=== PATIENT | male | born 1960 | race Caucasian/White ===

== ENCOUNTER 2021-08-09 11:35 | Inpatient (IN) | payer BC ==
[2021-08-09 12:32] LABS: Urine Blood Negative (Negative); Urine Glucose Negative (Negative); Urine Protein Negative (Negative); Urine Specific Gravity <=1.005 (1.005-1.030)
[2021-08-09 12:48] LABS: Absolute Lymphocytes (CBC) 3.5 K/uL (0.7-4.9); Hematocrit 46.9 % (39.6-49.0); Lymphocytes % 34.9 % (15.3-44.8); MPV 8.5 fL (7.6-11.3); RBC Red Blood Cell Count 5.48 M/uL (4.33-5.43)
[2021-08-09 12:50] LABS: Protime INR 0.96
--- NOTE | 2021-08-09 12:52 | RAD REPORT ---
EXAM DESCRIPTION: CT - Head Brain Wo Cont - 08/09/2021 12:38 pm CLINICAL HISTORY: DIZZINESS Headache, drowsiness COMPARISON: No comparisons TECHNIQUE: All CT scans are performed using dose optimization technique as appropriate and may inclu de automated exposure control or mA/KV adjustment according to patient size. FINDINGS: No intracranial hemorrhage, hydrocephalus or extra-axial fluid collection.No areas of brai n edema or evidence of midline shift. The paranasal sinuses and mastoids are clear. The calvarium is intact. IMPRESSION: No acute intracranial abnormality.
[2021-08-09] MEDS ORDERED: NA CHLORIDE 0.9% 1,000 ML ONE (12:58)
[2021-08-09 13:01] LABS: ALT/SGPT 30 U/L (12-78); AST/SGOT 18 U/L (15-37); Alkaline Phosphatase 80 U/L (45-117); BUN Blood Urea Nitrogen 12 mg/dL (7-18); Bicarbonate 28 mmol/L (21-32); Bilirubin Direct 0.1 mg/dL (0-0.2); Bilirubin Total 0.7 mg/dL (0.2-1.0); Glucose Level 151 mg/dL (74-106); Magnesium 2.2 mg/dL (1.8-2.4); NT PRO-BNP 163 pg/mL (<125); Potassium 3.9 mmol/L (3.5-5.1); Protein, Total 7.4 g/dL (6.4-8.2); Sodium Level 139 mmol/L (136-145); Troponin (Emerg Dept Use Only) < 0.02 ng/mL (0.0-0.045)
--- NOTE | 2021-08-09 13:19 | RAD REPORT ---
EXAM DESCRIPTION: RAD - Chest Single View - 08/09/2021 1:14 pm CLINICAL HISTORY: dizziness COMPARISON: No comparisons FINDINGS: Lines: None. Lungs: No evidence of edema or pneumonia. Pleural: No significant pleural effusions or pneumothorax. Cardiac: The heart size is within normal limits. Bones: No acute fractures. Other: IMPRESSION: No acute cardiopulmonary disease.
--- NOTE | 2021-08-09 14:46 | ER ---
Nurse's Notes [facility] Name: Gt Sun Age: 61 yrs Sex: Male : 1960 Arrival Date: 08/09/2021 Time: 11:37 Bed 14 Private MD: Diagnosis: Transient cerebral ischemic attack, unspecified Presentation: 08/09 11:38 Chief complaint: EMS states: Pt went into work, was confused. Did not recognize names es2 he should have known. Refused [facility], was brought in by [employer]. Walked in. Negative stroke scale. Allergic to PCN. Takes 5 daily meds. did not eat this morning. CBG 100. Coronavirus screen: Vaccine status: Patient reports receiving the 2nd dose of the covid vaccine. Date March 02, 2021. Ebola Screen: Patient negative for fever greater than or equal to 101.5 degrees Fahrenheit, and additional compatible Ebola Virus Disease symptoms Patient denies exposure to infectious person. Patient denies travel to an Ebola-affected area in the 21 days before illness onset. No symptoms or risks identified at this time. Initial Sepsis Screen: Does the patient meet any 2 criteria? No. Patient's initial sepsis screen is negative. Does the patient have a suspected source of infection? No. Patient's initial sepsis screen is negative. Risk Assessment: Do you want to hurt yourself or someone else? Patient reports no desire to harm self or others. Onset of symptoms was August 09, 2021. 11:38 Method Of Arrival: Other es2 11:38 Acuity: GAURANG 2 es2 Triage Assessment: 11:47 General: Appears in no apparent distress. well groomed, well developed, well nourished, es2 Behavior is calm, cooperative, appropriate for age. Pain: Denies pain. EENT: No signs and/or symptoms were reported regarding the EENT system. Neuro: Level of Consciousness is awake, alert, obeys commands, Oriented to person, place, time, situation, Appropriate for age Gait is steady, Speech is normal. Cardiovascular: Capillary refill < 3 seconds Patient's skin is warm and dry. Respiratory: Airway is patent Respiratory effort is even, unlabored, Respiratory pattern is regular, symmetrical. GI: No signs and/or symptoms were reported involving the gastrointestinal system. : No signs and/or symptoms were reported regarding the genitourinary system. Derm: Skin is intact, Skin is dry, Skin is pink, warm \T\ dry. normal, Skin temperature is warm. Derm: Skin is intact, Skin is dry, Skin is pink, warm \T\ dry. normal, Skin temperature is warm. Musculoskeletal: Capillary refill < 3 seconds, Range of motion: intact in all extremities. Historical: - Allergies: 11:43 PENICILLINS; es2 - Home Meds: 11:43 atorvastatin 20 mg oral tab 1 tab once daily [Active]; metformin 500 mg oral tab 1 tab es2 1x day [Active]; escitalopram oxalate 20 mg oral tab 1 tab once daily [Active]; finasteride 5 mg oral tab 1 tab once daily [Active]; aspirin 81 mg Oral tab 81 mg daily [Active]; - Immunization history:: Adult Immunizations up to date, Client reports receiving the 2nd dose of the Covid vaccine. - Social history:: Smoking status: Patient reports the use of cigarette tobacco products, smokes one pack cigarettes per day. - Family history:: not pertinent. Screenin:49 Abuse screen: Denies threats or abuse. Denies injuries from another. Nutritional es2 screening: No deficits noted. Tuberculosis screening: No symptoms or risk factors identified. Fall Risk Gait- Normal/Bed Rest/Wheelchair (0 pts). Assessment: 12:05 Reassessment: Patient and/or family updated on plan of care and expected duration. Pain es2 level reassessed. Patient is alert, oriented x 3, equal unlabored respirations, skin warm/dry/pink. MD at bedside. General: Appears in no apparent distress. comfortable, Behavior is calm, cooperative, appropriate for age. Pain: Denies pain. Neuro: Level of Consciousness is awake, alert, obeys commands, Oriented to person, place, time, situation, Appropriate for age. 21:15 Reassessment: Patient appears in no apparent distress at this time. Pt sitting on side dc2 of bed, is AAOx4, denies pain or discomfort at this time. CBG 115. VSS. Voices no needs at this time. Empty 400ml clear yellow urine. Continue to montior. Vital Signs: 11:38 BP 150 / 92; Pulse 65; Resp 18; Temp 98.7; Pulse Ox 99% on R/A; es2 12:06 BP 153 / 87; Pulse 64; Resp 17; Pulse Ox 99% ; es2 21:15 BP 167 / 98; Pulse 59; Resp 18; Temp 98.0; Pulse Ox 98% ; Pain 0/10; dc2 21:30 BP 153 / 92; Pulse 64; Resp 18; Pain 0/10; dc2 22:30 BP 166 / 85; Pulse 73; Resp 17; Pulse Ox 99% ; Pain 0/10; dc2 Shan Coma Score: 21:15 Eye Response: spontaneous(4). Verbal Response: oriented(5). Motor Response: obeys dc2 commands(6). Total: 15. ED Course: 11:37 Patient arrived in ED. es2 11:38 Nya Anderson, KATELYN is Primary Nurse. es2 11:43 Triage completed. es2 11:49 Patient has correct armband on for positive identification. Bed in low position. Side es2 rails up X 1. 11:49 Patient N/A. es2 11:52 Conor Capellan MD is Attending Physician. ma2 12:25 Basic Metabolic Panel Sent. es2 12:25 CBC with Diff Sent. es2 12:25 LFT's Sent. es2 12:25 Magnesium Sent. es2 12:25 NT PRO-BNP Sent. es2 12:25 PT-INR Sent. es2 12:26 Troponin (emerg Dept Use Only) Sent. es2 12:34 Inserted saline lock: 20 gauge in right forearm, using aseptic technique. es2 12:38 CT Head Brain wo Cont In Process Unspecified. EDMS 13:14 XRAY Chest (1 view) In Process Unspecified. EDMS 14:45 Conor Lott MD is Hospitalizing Provider. ma2 21:20 by ED staff, sent to lab. dc2 22:00 No provider procedures requiring assistance completed. dc2 22:00 IV Changed dressing on Flushed Converted IV to saline lock on dc2 Administered Medications: 12:49 Drug: NS 0.9% 1000 ml Route: IV; Rate: 1 bolus; Site: right forearm; es2 14:14 Follow up: Response: No adverse reaction; IV Status: Completed infusion es2 Intake: 21:15 PO: 500ml; Total: 500ml. dc2 Output: 21:15 Urine: 400ml (Voided); Total: 400ml. dc2 Outcome: 14:45 Decision to Hospitalize by Provider. ma2 22:30 Instructed on the need for admit, safety practices. dc2 22:35 Admitted to Med/surg accompanied by tech, via wheelchair, with chart. dc2 22:41 Condition: improved dc2 22:43 Patient left the ED. dc2 Signatures: Dispatcher [employer] EDMS Conor Capellan MD MD ma2 Anna Armstrong RN RN dc2 Nya Anderson RN RN es2
--- NOTE | 2021-08-09 14:46 | EDPHYS ---
Physician Documentation [facility] Name: Gt Sun Age: 61 yrs Sex: Male : 1960 Arrival Date: 08/09/2021 Time: 11:37 Bed 14 Private MD: ED Physician Conor Capellan HPI: 08/09 12:17 This 61 yrs old Male presents to ER via Other with complaints of episode of memory loss.ma2 12:17 The patient presents with confusion. Onset: The symptoms/episode began/occurred ma2 suddenly, 1 hour(s) ago. The patient presents with feeling faint. Associated signs and symptoms: Pertinent negatives: blurred vision, combativeness, diaphoresis, head injury. Associated signs and symptoms: The patient has no apparent associated signs or symptoms. Severity of symptoms: At their worst the symptoms were mild in the emergency department the symptoms have resolved. Current symptoms: In the emergency department the patient's symptoms have resolved. Patient is a 7-year-old healthy, history of diabetes, had an episode of confusion at home, that has resolved, he has been feeling dizzy over the last 24 hours, no other symptoms no chest pain syncope, no palpitation, no headaches, no focal neurological deficit at this time.. Historical: - Allergies: 11:43 PENICILLINS; es2 - Home Meds: 11:43 atorvastatin 20 mg oral tab 1 tab once daily [Active]; metformin 500 mg oral tab 1 tab es2 1x day [Active]; escitalopram oxalate 20 mg oral tab 1 tab once daily [Active]; finasteride 5 mg oral tab 1 tab once daily [Active]; aspirin 81 mg Oral tab 81 mg daily [Active]; - Immunization history:: Adult Immunizations up to date, Client reports receiving the 2nd dose of the Covid vaccine. - Social history:: Smoking status: Patient reports the use of cigarette tobacco products, smokes one pack cigarettes per day. - Family history:: not pertinent. ROS: 12:17 Constitutional: Negative for fever, chills, and weight loss. ma2 12:17 All other systems are negative. Exam: 12:17 Constitutional: This is a well developed, well nourished patient who is awake, alert, ma2 and in no acute distress. Head/Face: Normocephalic, atraumatic. Eyes: Pupils equal round and reactive to light, extra-ocular motions intact. Lids and lashes normal. Conjunctiva and sclera are non-icteric and not injected. Cornea within normal limits. Periorbital areas with no swelling, redness, or edema. ENT: Nares patent. No nasal discharge, no septal abnormalities noted. Tympanic membranes are normal and external auditory canals are clear. Oropharynx with no redness, swelling, or masses, exudates, or evidence of obstruction, uvula midline. Mucous membranes moist. Neck: Trachea midline, no thyromegaly or masses palpated, and no cervical lymphadenopathy. Supple, full range of motion without nuchal rigidity, or vertebral point tenderness. No Meningismus. Chest/axilla: Normal chest wall appearance and motion. Nontender with no deformity. No lesions are appreciated. Cardiovascular: Regular rate and rhythm with a normal S1 and S2. No gallops, murmurs, or rubs. Normal PMI, no JVD. No pulse deficits. Respiratory: Lungs have equal breath sounds bilaterally, clear to auscultation and percussion. No rales, rhonchi or wheezes noted. No increased work of breathing, no retractions or nasal flaring. Abdomen/GI: Soft, non-tender, with normal bowel sounds. No distension or tympany. No guarding or rebound. No evidence of tenderness throughout. Skin: Warm, dry with normal turgor. Normal color with no rashes, no lesions, and no evidence of cellulitis. MS/ Extremity: Pulses equal, no cyanosis. Neurovascular intact. Full, normal range of motion. Neuro: Awake and alert, GCS 15, oriented to person, place, time, and situation. Cranial nerves II-XII grossly intact. Motor strength 5/5 in all extremities. Sensory grossly intact. Cerebellar exam normal. Normal gait. Vital Signs: 11:38 BP 150 / 92; Pulse 65; Resp 18; Temp 98.7; Pulse Ox 99% on R/A; es2 12:06 BP 153 / 87; Pulse 64; Resp 17; Pulse Ox 99% ; es2 21:15 BP 167 / 98; Pulse 59; Resp 18; Temp 98.0; Pulse Ox 98% ; Pain 0/10; dc2 21:30 BP 153 / 92; Pulse 64; Resp 18; Pain 0/10; dc2 22:30 BP 166 / 85; Pulse 73; Resp 17; Pulse Ox 99% ; Pain 0/10; dc2 Shan Coma Score: 21:15 Eye Response: spontaneous(4). Verbal Response: oriented(5). Motor Response: obeys dc2 commands(6). Total: 15. MDM: 12:17 Differential Diagnosis: electrolyte abnormality, alcohol intoxication, hypoglycemia, ma2 UTI, volume depletion. 13:59 Data reviewed: vital signs, nurses notes. Counseling: I had a detailed discussion with [facility] the patient and/or guardian regarding: the historical points, exam findings, and any diagnostic results supporting the discharge/admit diagnosis, the presence of at least one elevated blood pressure reading (>120/80) during this emergency department visit, the need for further work-up and treatment in the hospital. Response to treatment: the patient's symptoms have markedly improved after treatment. ED course: Patient likely had TIA, although duration was less than few minutes, resolved completely, he does have risk factors such as diabetes, smoker, hypercholesterolemia, and hypertension, he is high risk of having another TIA or stroke in the next 24 hours, and I recommend an admission for TIA work-up. He would like to think about it. . 14:45 Patient medically screened. [facility] 14:45 ED course: discussed with hospitalist Nadine. [facility] 08/09 12:11 Order name: Basic Metabolic Panel; Complete Time: 13:19 [facility] 08/09 12:11 Order name: CBC with Diff; Complete Time: 13:19 [facility] 08/09 12:11 Order name: LFT's; Complete Time: 13:19 [facility] 08/09 12:11 Order name: Magnesium; Complete Time: 13:19 [facility] 08/09 12:11 Order name: NT PRO-BNP; Complete Time: 13:19 [facility] 08/09 12:11 Order name: PT-INR; Complete Time: 13:19 [facility] 08/09 12:11 Order name: Troponin (emerg Dept Use Only); Complete Time: 13:19 [facility] 08/09 12:32 Order name: Urine Dipstick-Ancillary; Complete Time: 13:19 [facility] 08/09 17:17 Order name: Hemoglobin A1c [facility] 08/09 17:24 Order name: Troponin I [facility] 08/09 17:24 Order name: Lipid Profile [facility] 08/09 17:24 Order name: T4 Free [facility] 08/09 17:24 Order name: Thyroid Stimulating Hormone [facility] 08/09 17:40 Order name: Glucose, Ancillary Testing [facility] 08/09 12:11 Order name: XRAY Chest (1 view); Complete Time: 13:20 [facility] 08/09 12:11 Order name: EKG; Complete Time: 12:12 [facility] 08/09 12:11 Order name: Cardiac monitoring; Complete Time: 12:50 [facility] 08/09 12:11 Order name: EKG - Nurse/Tech; Complete Time: 12:50 [facility] 08/09 12:11 Order name: IV Saline Lock; Complete Time: 12:26 [facility] 08/09 12:11 Order name: Labs collected and sent; Complete Time: 12:26 [facility] 08/09 12:11 Order name: O2 Per Protocol [facility] 08/09 12:11 Order name: O2 Sat Monitoring [facility] 08/09 12:11 Order name: CT Head Brain wo Cont; Complete Time: 13:19 [facility] 08/09 12:11 Order name: Urine Dipstick-Ancillary (obtain specimen); Complete Time: 12:34 [facility] 08/09 13:36 Order name: Diet Regular; Complete Time: 13:37 08/09 19:00 Order name: COVID-19 : Document "Date of Symptom Onset" if Symptomatic. bd 08/09 20:27 Order name: CORONAVIRUS [facility] 08/09 21:30 Order name: Glucose, Ancillary Testing [facility] 08/09 21:32 Order name: SARS-COV-2 RT PCR EDNV Administered Medications: 12:49 Drug: NS 0.9% 1000 ml Route: IV; Rate: 1 bolus; Site: right forearm; es2 14:14 Follow up: Response: No adverse reaction; IV Status: Completed infusion es2 Disposition Summary: 08/09/21 14:45 Hospitalization Ordered Hospitalization Status: Observation ma2 Provider: Conor Lott ma2 Location: Telemetry/MedSurg (observation) ma2 Condition: Stable ma2 Problem: new ma2 Symptoms: are unchanged ma2 Bed/Room Type: Standard oh2 Room Assignment: 422(08/09/21 21:52) tl1 Diagnosis - Transient cerebral ischemic attack, unspecified ma2 Forms: - Medication Reconciliation Form ma2 - SBAR form ma2 Signatures: Dispatcher [employer] Kalina Conley RN RN tl1 Conor Capellan MD MD ma2 Nya Anderson RN RN es2 Corrections: (The following items were deleted from the chart) 21:52 14:45 josé miguel tl1
[2021-08-09] MEDS ORDERED: HYDROCODONE/APAP 5/325 MG TAB PO PRN (16:01)
[2021-08-09] MEDS ORDERED: ACETAMINOPHEN 500 MG TAB PO PRN (16:07)
[2021-08-09] MEDS ORDERED: ONDANSETRON 4 MG/2 ML VIAL IV PRN (16:07)
--- NOTE | 2021-08-09 16:13 | P.HP ---
Certification for Inpatient Patient admitted to: Observation With expected LOS: <2 Midnights Practitioner: I am a practitioner with admitting privileges, knowledge of patient current condition, hospital course, and medical plan of care. Services: Services provided to patient in accordance with Admission requirements found in Title 42 Section 412.3 of the Code of Federal Regulations Patient History Date of Service: 08/09/21 Reason for admission: TIA History of Present Illness: Patient is a 61-year-old male with a past medical history significant for HLD, depression, HTN, BPH, DM 2, nicotine dependence who presents with complaint of memory loss, dizziness and confusion which occurred today while he was at work. Patient reported that he has been dizzy since yesterday. Patient denies any other signs or symptoms. Symptoms are aggravated or relieved by nothing. Patient decided to present to the hospital for medical evaluation. Allergies Penicillins Adverse Reaction (Verified 08/09/21 17:33) Hives Home medications list reviewed: Yes Home Medications: Benazepril HCl 40 mg PO DAILY 08/09/21 Metformin HCl 1,000 mg PO BID 08/09/21 Omeprazole 20 mg PO DAILY 08/09/21 Simvastatin 40 mg PO BEDTIME 08/09/21 - Past Medical/Surgical History Past Medical History: Patient denies medical history -: HTN -: Dm 2 -: HTN -: GERD Past Surgical History: Patient denies surgical history - Family History Family History: Reviewed- Non-Contributory - Social History Smoking Status: Current every day smoker Smoking therapy provided: Yes Patient receptive to therapy: Yes Alcohol use: Yes CD- Drugs: No Caffeine use: No Place of Residence: Home Review of Systems Eyes: Unremarkable ENT: Unremarkable Respiratory: As per HPI, Unremarkable Cardiovascular: Unremarkable Gastrointestinal: Unremarkable Genitourinary: Unremarkable Musculoskeletal: Unremarkable Integumentary: Unremarkable Neurological: Other (Memory loss, dizziness, confusion ) Physical Examination - Physical Exam General: Alert, In no apparent distress, Oriented x3 HEENT: Atraumatic, PERRLA, Mucous membr. moist/pink, EOMI, Sclerae nonicteric Neck: Supple, 2+ carotid pulse no bruit, No LAD, Without JVD or thyroid abnormality Respiratory: Clear to auscultation bilaterally, Normal air movement Cardiovascular: Regular rate/rhythm, Normal S1 S2 Capillary refill: <2 Seconds Gastrointestinal: Normal bowel sounds, No tenderness Musculoskeletal: No clubbing, No tenderness Integumentary: No rashes Neurological: Normal gait, Normal speech, Normal strength at 5/5 x4 extr, Normal tone, Normal affect Lymphatics: No axilla or inguinal lymphadenopathy External genitalia: Deferred Rectal: Deferred - Studies Laboratory Data (last 24 hrs) 08/09/21 12:26: PT 11.0, INR 0.96 08/09/21 12:26: WBC 9.90, Hgb 15.7, Hct 46.9, Plt Count 256 08/09/21 12:26: Sodium 139, Potassium 3.9, BUN 12, Creatinine 1.09, Glucose 151 H, Magnesium 2.2, Total Bilirubin 0.7, AST 18, ALT 30, Alkaline Phosphatase 80 Assessment and Plan - Plan --TIA. MRI brain to rule out stroke pending. Continue aspirin. Continue supportive care. --Hypertension. We will allow for permissive hypertension pending resolution of MRI to rule out CVA. --DM2. BS monitoring with sliding scale insulin. --HLD. Continue statin. --Depression. Continue home medication. --Nicotine dependence. Patient counseled on tobacco cessation and placed on nicotine patch. --BPH. Continue finasteride. --DVT prophylaxis with Lovenox subcQ. I have had discussion about advanced directives with the patient during this hospital admission. Addressed code status and /or goals of care. Spent more than 15 minutes. Case discussed withpatient and nurse. The following document was completed using voice recognition software. This can produce yellow pages space salesperson errors that can at times significantly distort words and phrases. Please interpret any aspect of the note that is nonsensical in light of this fact. Discharge Plan: Home Plan to discharge in: 48 Hours - Advance Directives Does patient have a Living Will: No Does patient have a Durable POA for Healthcare: No - Code Status/Comfort Care Code Status Assessed: Yes Code Status: Full Code Physician Review: Patient Assessed, Agree with Above Assessment and Plan Critical Care: No
[2021-08-09] MEDS ORDERED: D50W 25 GM/50 ML SYRINGE IV PRN (16:18)
[2021-08-09] MEDS ORDERED: GLUCAGON 1 MG/VIAL IM PRN (16:18)
[2021-08-09] MEDS ORDERED: INSULIN -REGULAR HUMAN 50 UNIT/0.5 ML ML SQ SCH (16:30)
[2021-08-09] MEDS: INSULIN -REGULAR HUMAN 50 UNIT/0.5 ML ML SQ SCH ×2 (16:30→21:00)
[2021-08-09] MEDS: ENOXAPARIN 40 MG/0.4 ML SQ SCH (17:00)
[2021-08-09 17:24] LABS: HDL Cholesterol 30 mg/dL (40-60); LDL Cholesterol, Calculated 55 (<130); Thyroid Stimulating Hormone 0.936 uIU/mL (0.360-3.740); Troponin I < 0.02 ng/mL (0.0-0.045)
[2021-08-09 17:38] VITALS: BMI 32.4
[2021-08-09] MEDS ORDERED: ENOXAPARIN 40 MG/0.4 ML SQ ONE (17:50)
[2021-08-10 04:30] LABS: Absolute Lymphocytes (CBC) 4.1 K/uL (0.7-4.9); Basophils % 0.9 % (0-1.3); Hematocrit 43.6 % (39.6-49.0); Lymphocytes % 43.8 % (15.3-44.8); MPV 8.9 fL (7.6-11.3); RBC Red Blood Cell Count 5.11 M/uL (4.33-5.43)
[2021-08-10 04:43] LABS: Potassium 4.1 mmol/L (3.5-5.1)
[2021-08-10] MEDS ORDERED: PANTOPRAZOLE 40MG TABLET PO SCH (06:30)
[2021-08-10] MEDS: LORazepam 2 MG/ML VIAL IV ONE ×2 (08:26→08:39)
[2021-08-10] MEDS: INSULIN -REGULAR HUMAN 50 UNIT/0.5 ML ML SQ SCH ×4 (08:40→20:32)
[2021-08-10] MEDS: ENOXAPARIN 40 MG/0.4 ML SQ SCH (08:41)
[2021-08-10] MEDS ORDERED: ASPIRIN 81 MG CHEWABLE TABLET PO SCH (09:00)
[2021-08-10] MEDS ORDERED: BENAZEPRIL 20 MG TAB PO SCH (09:00)
[2021-08-10] MEDS ORDERED: NICOTINE 21 MG/PAT TD SCH (09:00)
[2021-08-10 09:21] VITALS: O2SAT 98
[2021-08-10 16:40] LABS: Urine Appearance CLEAR (Clear); Urine Bilirubin NEGATIVE (Negative); Urine Blood NEGATIVE (Negative); Urine Color YELLOW (Yellow); Urine Glucose NEGATIVE (Negative); Urine Microscopic Reflex NO UMIC; Urine Protein NEGATIVE (Negative); Urine Urobilinogen 0.2 mg/dL (0.2-1.0)
[2021-08-10] MEDS ORDERED: HYDRALAZINE HCL 20 MG/ML VIAL IV PRN (17:31)
[2021-08-10] MEDS ORDERED: LORazepam 2 MG/ML VIAL IV ONE (19:06)
--- NOTE | 2021-08-10 20:27 | RAD REPORT ---
EXAM DESCRIPTION: MRI - Brain Wo Cont - 08/10/2021 8:18 pm CLINICAL HISTORY: R O CVA Headache, drowsiness, CVA symptomology COMPARISON: Head Brain Wo Cont dated 08/09/2021 TECHNIQUE: Multi-sequence, multiplanar MR imaging of the brain was performed without contrast. FINDINGS: No intracranial hemorrhage, hydrocephalus or extra-axial fluid collections. No edema or sh ift of midline structures. No findings to suspect brain mass. DWI is negative for acute CVA. Midline structures are normally formed. Mastoid air cells and paranasal sinuses are clear except for a small amount of mucus in the inferior left maxillary antrum. IMPRESSION: Negative for acute CVA or other acute intracranial finding.
[2021-08-10 20:40] VITALS: BP 154/87; TEMP 97.8
[2021-08-10] MEDS ORDERED: ATORVASTATIN 20 MG TAB PO SCH (21:00)
[2021-08-11] MEDS ORDERED: AMLODIPINE 10 MG TAB PO SCH (09:00)
== END 2021-08-10 22:46 | disposition home or self-care (01) | DRG 69 ==
LOC: ER 11:35 → ERHOLD 15:56 → 4TH 22:30
PROVIDERS: ADMIT Hospitalist; ATTEND Hospitalist
DX: G45.9 Transient cerebral ischemic attack, unspecified (principal); I10 Essential (primary) hypertension; E11.9 Type 2 diabetes mellitus without complications; K21.9 Gastro-esophageal reflux disease without esophagitis; F17.210 Nicotine dependence, cigarettes, uncomplicated; F32.9 Major depressive disorder, single episode, unspecified; N40.0 Benign prostatic hyperplasia without lower urinary tract symptoms; E78.5 Hyperlipidemia, unspecified; Z20.822 Contact with and (suspected) exposure to COVID-19; Z88.0 Allergy status to penicillin
CPT/HCPCS: 36415; 70450; 70551; 71045; 80048; 80061; 80076; 81003; 82947; 83036; 83735; 83880; 84439; 84443; 84484; 85025; 85610; 93005; 96360; 99285; J0360; J1650; J7030; U0003